=== PATIENT | male | born 2000 | race Asian ===

== ENCOUNTER 2023-06-29 11:27 | Outpatient (REF) | payer MEDICAID, SELFPAY ==
[2023-07-01 20:32] LABS: TS Negative Control Passed; TS Panel A 0; TS Panel B 0; TS Positive Control Passed; TSpotTB Negative (Negative)
== END 2023-06-29 11:28 | disposition home or self-care (01) ==
LOC: HO.CHCLDS 11:27
PROVIDERS: Visit Provider Family Medicine
DX: Z11.1 Encounter for screening for respiratory tuberculosis (principal)
CPT/HCPCS: 36415; 86481